=== PATIENT | male | born 1995 | race Caucasian/White ===

== ENCOUNTER 2018-12-12 13:33 | Outpatient (CLI) | payer OTHER | END 2018-12-12 13:44 | disposition home or self-care (01) | LOC: RAD 13:33 | DX: R73.01 Impaired fasting glucose (principal); E04.2 Nontoxic multinodular goiter; G47.33 Obstructive sleep apnea (adult) (pediatric); L20.84 Intrinsic (allergic) eczema; J30.89 Other allergic rhinitis; L86 Keratoderma in diseases classified elsewhere; R19.8 Other specified symptoms and signs involving the digestive system and abdomen; Z13.1 Encounter for screening for diabetes mellitus; Z13.21 Encounter for screening for nutritional disorder; Z11.59 Encounter for screening for other viral diseases ==

== ENCOUNTER 2018-12-14 10:30 | Outpatient (CLI) | payer OTHER | END 2018-12-14 15:00 | disposition home or self-care (01) | LOC: LAB 10:30 | DX: R73.03 Prediabetes (principal); E04.2 Nontoxic multinodular goiter; G47.33 Obstructive sleep apnea (adult) (pediatric); L20.84 Intrinsic (allergic) eczema; J30.89 Other allergic rhinitis; L86 Keratoderma in diseases classified elsewhere; Z13.1 Encounter for screening for diabetes mellitus; Z13.21 Encounter for screening for nutritional disorder; Z11.4 Encounter for screening for human immunodeficiency virus [HIV] ==

== ENCOUNTER 2018-12-15 16:57 | Outpatient (CLI) | payer OTHER | END 2018-12-15 17:07 | disposition home or self-care (01) | LOC: LAB 16:57 | DX: R73.03 Prediabetes (principal); E04.2 Nontoxic multinodular goiter; G47.33 Obstructive sleep apnea (adult) (pediatric); L20.84 Intrinsic (allergic) eczema; J30.89 Other allergic rhinitis; R19.8 Other specified symptoms and signs involving the digestive system and abdomen; Z13.1 Encounter for screening for diabetes mellitus; Z13.21 Encounter for screening for nutritional disorder ==